=== PATIENT | female | born 1990 | race Caucasian/White ===

== ENCOUNTER 2016-08-17 01:26 | Emergency (ER) | payer BC, OTHER ==
[2016-08-17 01:33] VITALS: BP 114/69; PULSE 70; TEMP 98.4; BMI 21.6
[2016-08-17] MEDS ORDERED: LOPERAMIDE HCL 2 MG CAPSULE PO ONE (02:03)
[2016-08-17] MEDS ORDERED: AMOXICILLIN 250 MG CAPSULE PO ONE (02:03)
[2016-08-17] MEDS ORDERED: AMOXICILLIN 250 MG CAPSULE ONE (02:04)
[2016-08-17] MEDS ORDERED: LOPERAMIDE HCL 2 MG CAPSULE ONE (02:04)
--- NOTE | 2016-08-17 02:05 | PDOC ---
[id number] DIARRHEA SINCE WEDNESDAY Time Seen by Provider: 08/17/16 01:30 - History of Present Illness Initial Comments: 08/17/16 02:12 This 26 y.o woman presents with 4 day history of diarrhea: she first experienced loose stools 6 days ago which abated for a few days then recurred. She was away on vacation (in [place]) when diarrhea returned and admits to eating a full diet/drinking alcohol despite the loose stools.Patient returned today and had multiple loose stools while on plane. She describes some mucus and blood streaking in the stool. no fever/chills/nausea/vomiting. No known sick contacts. Recent history notable for course of Clindamycin for wisdom tooth infection( ending approx 2 weeks ago) No previous history of gastrintestinal issues patient states that she has developed pain in right upper wisdom tooth in the last 1-2 days(dental abscess 2 weeks ago was in right lower wisdom tooth) PMH anemia Meds iron supplements Past History - Past Medical History Allergies/Adverse Reactions: Allergies Allergy/AdvReac Type Severity Reaction Status Date / Time No Known Allergies Allergy Verified 08/17/16 01:27 Home Medications: Ambulatory Orders NK [No Known Home Medication] 08/17/16 Other medical history: DENIES - Psycho/Social/Smoking Cessation Hx Anxiety: No Suicidal Ideation: No Smoking History: Current every day smoker Have you smoked in the past 12 months: Yes Number of Cigarettes Smoked Daily: 3 Information on smoking cessation initiated: No Hx Alcohol Use: Yes (SOCIALLY) Drug/Substance Use Hx: No Substance Use Type: None Review of Systems - Review of Systems Able to Perform ROS?: Yes Comments:: 12 point review of systems is negative except for what is noted in the history of present illness *Physical Exam - Vital Signs Last Vital Signs Temp Pulse Resp BP Pulse Ox 98.4 F 70 16 114/69 100 08/17/16 01:29 08/17/16 01:29 08/17/16 01:29 08/17/16 01:29 08/17/16 01:29 - Physical Exam Comments: GENERAL: The patient is awake, alert, and fully oriented, in no acute distress. Vital signs as noted. HEAD: Normal with no signs of trauma. EYES: Pupils equal, round and reactive to light, extraocular movements intact, sclera anicteric, conjunctiva clear with no pallor. ENT: moist mucous membranes. Ears normal, nares patent, oropharynx clear without exudates. NECK: Normal range of motion, supple without lymphadenopathy, JVD, or masses. LUNGS: Breath sounds equal, clear to auscultation bilaterally. No wheeze/ crackles. HEART: Regular rate and rhythm, normal S1 and S2 without murmur or rub. ABDOMEN: Soft,nondistended. BS wnl. Generalized very mild tenderness without guarding or rebound. No palpable masses. No hepatosplenomegaly. EXTREMITIES: Normal range of motion, no edema. No clubbing or cyanosis. No cords, erythema, or tenderness. NEUROLOGICAL: Cranial nerves II through XII grossly intact. Normal speech, normal gait. PSYCH: Normal mood, normal affect. SKIN: Warm, Dry, normal turgor, no rashes or lesions noted. Progress Note - Progress Note Progress Note: This 26y.o. woman presents with a few day history of diarrhea and intermittent abdominal cramping(associated with bowel movements). Exam reveals no evidence of dehydration or abdominal tenderness/distention. right upper wisdom tooth area is moderately tender but without significant edema/inflammation Significance of possible C difficile infection explained to the patient.She cannot provide a sample now for testing. She prefers to followup with her own general doctor within the next few days, taking imodium or pepto bismol as needed. She will see her dentist tomorrow; in light of her diarrhea and lack of severity of infectious process in right upper wisdom tooth, neither Augmentin or Clindamycin will be given now. *DC/Admit/Observation/Transfer Diagnosis at time of Disposition: Dental abscess Diarrhea Qualifiers: Diarrhea type: presumed infectious Qualified Code(s): A09 - Infectious gastroenteritis and colitis, unspecified - Discharge Dispostion Disposition: HOME Condition at time of disposition: Stable - Referrals Referrals: Britney Luque MD [Primary Care Provider] - 2 Days - Patient Instructions Printed Discharge Instructions: Diarrhea Additional Instructions: drink plenty of water followup with your dentist tomorrow imodium or peptp bismol as needed bland diet avoid alcohol/high fat or spicy foods/citrus see your general doctor within 2 days return to ER if your symptoms worsen
== END 2016-08-17 02:12 | disposition home or self-care (01) ==
LOC: FER 01:26
DX: K04.7 Periapical abscess without sinus (principal); A09 Infectious gastroenteritis and colitis, unspecified; F17.210 Nicotine dependence, cigarettes, uncomplicated
CPT/HCPCS: 99281-25

== ENCOUNTER 2016-08-18 18:15 | Emergency (ER) | payer OTHER ==
--- NOTE | 2016-08-18 18:20 | PDOC ---
History of Present Illness <Ta Gan - Last Filed: 08/18/16 18:20> - History of Present Illness Initial Comments: 08/18/16 20:39 The patient is a 26 year old female with no PMHx who presents to the ED with diffuse abdominal pain, diarrhea, and hematochezia for about a week. She reports the diarrhea is constant. She reports that the hematochezia is intermittent and she is unaware if it is still persisting because she is currently menstruating. The patient reports that she presented 2 days ago with similar symptoms, and was discharged with Imodium. She reports the symptoms have persisted, so she went to urgent care today who told her to come back to the ED. She reports that she had a tooth infection and has been on antibiotics for about 3 weeks. She began on clindamycin, and is currently on amoxicillin. She states that she has been incorporating yogurt in her diet daily. She reports tobacco use and alcohol use. She denies fever, chills, nausea, vomiting. She denies chest pain, SOB, headache, dizziness. She denies urinary complaints. <Lissett Colon - Last Filed: 08/18/16 20:42> <Leonie Swanson - Last Filed: 08/19/16 04:05> - General Stated Complaint: BLOOD IN STOOL Past History - Psycho/Social/Smoking Cessation Hx Anxiety: No Suicidal Ideation: No Smoking History: Current every day smoker Have you smoked in the past 12 months: Yes Number of Cigarettes Smoked Daily: 3 'Breaking Loose' booklet given: 08/17/16 Hx Alcohol Use: Yes (SOCIALLY) Drug/Substance Use Hx: No Substance Use Type: None <Ta Gan - Last Filed: 08/18/16 18:20> <Lissett Colon - Last Filed: 08/18/16 20:42> <Leonie Swanson - Last Filed: 08/19/16 04:05> - Past Medical History Allergies/Adverse Reactions: Allergies Allergy/AdvReac Type Severity Reaction Status Date / Time No Known Allergies Allergy Verified 08/18/16 18:25 Home Medications: Ambulatory Orders NK [No Known Home Medication] 08/17/16 Review of Systems - Review of Systems Able to Perform ROS?: Yes Comments:: 08/18/16 20:40 GENERAL/CONSTITUTIONAL: No fever or chills. No weakness. HEAD, EYES, EARS, NOSE AND THROAT: No change in vision. No ear pain or discharge. No sore throat. CARDIOVASCULAR: No chest pain or shortness of breath. RESPIRATORY: No cough, wheezing, or hemoptysis. GASTROINTESTINAL: (+) abdominal pain, (+) diarrhea, (+) hematochezia. No nausea , vomiting, or constipation. GENITOURINARY: No dysuria, frequency, or change in urination. MUSCULOSKELETAL: No joint or muscle swelling or pain. No neck or back pain. SKIN: No rash NEUROLOGIC: No headache, vertigo, loss of consciousness, or change in strength/ sensation. ENDOCRINE: No increased thirst. No abnormal weight change. HEMATOLOGIC/LYMPHATIC: No anemia, easy bleeding, or history of blood clots. ALLERGIC/IMMUNOLOGIC: No hives or skin allergy. <Lissett Colon A - Last Filed: 08/18/16 20:42> *Physical Exam - Vital Signs Last Vital Signs Temp Pulse Resp BP Pulse Ox 98.6 F 71 18 124/62 100 08/18/16 18:18 08/18/16 18:18 08/18/16 18:18 08/18/16 18:18 08/18/16 18:18 - Physical Exam Comments: 08/18/16 20:41 GENERAL: Awake, alert, and fully oriented, in no acute distress HEAD: No signs of trauma EYES: PERRLA, EOMI, sclera anicteric, conjunctiva clear ENT: Auricles normal inspection, hearing grossly normal, nares patent, oropharynx clear without exudates. Moist mucosa NECK: Normal ROM, supple, no lymphadenopathy, JVD, or masses LUNGS: Breath sounds equal, clear to auscultation bilaterally. No wheezes, and no crackles HEART: Regular rate and rhythm, normal S1 and S2, no murmurs, rubs or gallops ABDOMEN: Soft, diffuse tenderness, hyperactive bowel sounds. No guarding, no rebound. No masses EXTREMITIES: Normal range of motion, no edema. No clubbing or cyanosis. No cords, erythema, or tenderness NEUROLOGICAL: Cranial nerves II through XII grossly intact. Normal speech, normal gait SKIN: Warm, Dry, normal turgor, no rashes or lesions noted. <Lissett Colon - Last Filed: 08/18/16 20:42> - Vital Signs Last Vital Signs Temp Pulse Resp BP Pulse Ox 98.6 F 71 18 124/62 100 08/18/16 18:18 08/18/16 18:18 08/18/16 18:18 08/18/16 18:18 08/18/16 18:18 <Leonie Swanson - Last Filed: 08/19/16 04:05> ED Treatment Course - LABORATORY CBC & Chemistry Diagram: 08/18/16 18:33 08/18/16 18:33 - ADDITIONAL ORDERS Additional order review: Laboratory Results 08/18/16 08/18/16 08/18/16 19:30 19:06 18:33 INR Sodium 134 L Potassium 3.5 Chloride 102 Carbon Dioxide 23 Anion Gap 9 BUN 6 L Creatinine 0.6 Creat Clearance w eGFR > 60 Random Glucose 98 Calcium 9.0 Total Bilirubin 0.5 AST 12 ALT 12 Alkaline Phosphatase 52 Total Protein 6.7 Albumin 4.2 Lipase 20 L Serum , Qual Negative Urine Color Yellow Urine Appearance Clear Urine pH 5.5 Ur Specific [place] 1.015 Urine Protein Negative Urine Glucose (UA) Negative Urine Ketones 2+ H Urine Blood 3+ H Urine Nitrite Negative Urine Bilirubin Negative Urine Urobilinogen 0.2 e.u/dl Ur Leukocyte Esterase Negative Stool Occult Blood 08/18/16 08/18/16 18:33 18:33 INR 1.07 Sodium Potassium Chloride Carbon Dioxide Anion Gap BUN Creatinine Creat Clearance w eGFR Random Glucose Calcium Total Bilirubin AST ALT Alkaline Phosphatase Total Protein Albumin Lipase Serum , Qual Urine Color Urine Appearance Urine pH Ur Specific [place] Urine Protein Urine Glucose (UA) Urine Ketones Urine Blood Urine Nitrite Urine Bilirubin Urine Urobilinogen Ur Leukocyte Esterase Stool Occult Blood Positive 08/18/16 18:33 RBC 4.45 MCV 87.7 MCHC 34.8 RDW 12.5 MPV 7.8 Neutrophils % 77.2 Lymphocytes % 9.4 Monocytes % 12.5 H Eosinophils % 0.6 Basophils % 0.3 - Medications Given in the ED: ED Medications Discontinued Medications Generic Name Dose Route Start Last Admin Trade Name Freq PRN Reason Stop Dose Admin Sodium Chloride 1,000 mls @ 1,000 mls/hr 08/18/16 18:56 08/18/16 19:05 Normal Saline - IV 08/18/16 19:55 1,000 mls/hr ASDIR STA Administration <Nichelle Colonobhan Ferdinand - Last Filed: 08/18/16 20:42> - LABORATORY CBC & Chemistry Diagram: 08/18/16 18:33 08/18/16 18:33 - ADDITIONAL ORDERS Additional order review: Laboratory Results 08/18/16 08/18/16 08/18/16 19:30 19:06 18:33 INR Sodium 134 L Potassium 3.5 Chloride 102 Carbon Dioxide 23 Anion Gap 9 BUN 6 L Creatinine 0.6 Creat Clearance w eGFR > 60 Random Glucose 98 Calcium 9.0 Total Bilirubin 0.5 AST 12 ALT 12 Alkaline Phosphatase 52 Total Protein 6.7 Albumin 4.2 Lipase 20 L Serum , Qual Negative Urine Color Yellow Urine Appearance Clear Urine pH 5.5 Ur Specific [place] 1.015 Urine Protein Negative Urine Glucose (UA) Negative Urine Ketones 2+ H Urine Blood 3+ H Urine Nitrite Negative Urine Bilirubin Negative Urine Urobilinogen 0.2 e.u/dl Ur Leukocyte Esterase Negative Urine RBC 20-30 Urine WBC 0-2 Urine Bacteria Few Stool Occult Blood 08/18/16 08/18/16 18:33 18:33 INR 1.07 Sodium Potassium Chloride Carbon Dioxide Anion Gap BUN Creatinine Creat Clearance w eGFR Random Glucose Calcium Total Bilirubin AST ALT Alkaline Phosphatase Total Protein Albumin Lipase Serum , Qual Urine Color Urine Appearance Urine pH Ur Specific [place] Urine Protein Urine Glucose (UA) Urine Ketones Urine Blood Urine Nitrite Urine Bilirubin Urine Urobilinogen Ur Leukocyte Esterase Urine RBC Urine WBC Urine Bacteria Stool Occult Blood Positive 08/18/16 18:33 RBC 4.45 MCV 87.7 MCHC 34.8 RDW 12.5 MPV 7.8 Neutrophils % 77.2 Lymphocytes % 9.4 Monocytes % 12.5 H Eosinophils % 0.6 Basophils % 0.3 - Medications Given in the ED: ED Medications Discontinued Medications Generic Name Dose Route Start Last Admin Trade Name Freq PRN Reason Stop Dose Admin Sodium Chloride 1,000 mls @ 1,000 mls/hr 08/18/16 18:56 08/18/16 19:05 Normal Saline - IV 08/18/16 19:55 1,000 mls/hr ASDIR STA Administration <Leonie Swanson - Last Filed: 08/19/16 04:05> *DC/Admit/Observation/Transfer - Attestations Physician Attestion: 08/18/16 18:20 I, Dr. Ta Gan, attest that this document has been prepared under my direction and personally reviewed by me in its entirety. I further attest, that it accurately reflects all work, treatment, procedures and medical decision -making performed by me. <Ta Gan - Last Filed: 08/18/16 18:20> - Attestations Scribe Attestion: 08/18/16 20:41 Documentation prepared by Lissett Colon, acting as medical management specialist for Ta Gan MD/DO. <Lissett Colon - Last Filed: 08/18/16 20:42> <Leonie Swanson - Last Filed: 08/19/16 04:05> Diagnosis at time of Disposition: Dental abscess Diarrhea Qualifiers: Diarrhea type: presumed infectious Qualified Code(s): A09 - Infectious gastroenteritis and colitis, unspecified - Discharge Dispostion Disposition: HOME Condition at time of disposition: Stable - Patient Instructions Printed Discharge Instructions: DI for Diarrhea and Traveler's Diarrhea -- Adult, Probiotics May Decrease Intensity and Duration of Diarrhea Due to Infection Additional Instructions: fluids/light diet as tolerated Continue amoxicillin as prescribed Continue probiotics as discussed Imodium/Pepto-Bismol as needed after each loose stool Follow-up with your general doctor tomorrow as scheduled Return to ER if your symptoms worsen
[2016-08-18 18:24] VITALS: BP 124/62; PULSE 71; TEMP 98.6; BMI 21.6
[2016-08-18] MEDS ORDERED: SODIUM CHLORIDE 1,000 ML IV STA (18:56)
[2016-08-18 18:57] LABS: INR 1.07 (0.82-1.09)
[2016-08-18 18:58] LABS: BASOPHIL 0.3 % (0-2.0); EOSINOPHIL 0.6 % (0-4.5); MCH 30.5 pg (25.7-33.7); MCHC 34.8 g/dl (32.0-36.0); MEAN CELL VOLUME 87.7 fl (80-96); MEAN PLT VOLUME 7.8 fl (7.5-11.1); NEUTROPHILS 77.2 % (42.8-82.8); PLATELET COUNT 287 K/MM3 (134-434); RDW 12.5 % (11.6-15.6); WHITE BLOOD COUNT 9.9 K/mm3 (4.0-10.8)
[2016-08-18 19:03] LABS: ALBUMIN 4.2 g/dl (3.5-5.0); ALK PHOS 52 U/L (32-92); ANION GAP 9 (8-16); BILIRUBIN,TOTAL 0.5 mg/dl (0.2-1.0); CO2 23 mmol/L (22-28); CREATININE 0.6 mg/dl (0.6-1.3); GLUCOSE,RANDOM 98 mg/dl (74-106); SGOT/AST 12 U/L (10-42); SGPT/ALT 12 U/L (10-40); TOT PROT 6.7 g/dl (6.4-8.3)
[2016-08-18 19:41] LABS: PH,URINE 5.5 (4.5-8); URINE APPEARANCE Clear; URINE BILIRUBIN Negative (NEGATIVE); URINE BLOOD 3+ (NEGATIVE); URINE COLOR YELLOW; URINE GLUCOSE (UA) Negative (NEGATIVE); URINE KETONE 2+ (NEGATIVE); URINE LEUK ESTERASE Negative (NEGATIVE); URINE NITRITE Negative (NEGATIVE); URINE PROTEIN Negative (NEGATIVE); URINE UROBILINOGEN 0.2 E.U/dl (0.2-1.0)
--- NOTE | 2016-08-18 19:51 | PDOC ---
[id number] 100 08/18/16 18:18 08/18/16 18:18 08/18/16 18:18 08/18/16 18:18 08/18/16 18:18 ED Treatment Course - LABORATORY CBC & Chemistry Diagram: 08/18/16 18:33 08/18/16 18:33 - ADDITIONAL ORDERS Additional order review: Laboratory Results 08/18/16 08/18/16 08/18/16 19:30 19:06 18:33 INR Sodium 134 L Potassium 3.5 Chloride 102 Carbon Dioxide 23 Anion Gap 9 BUN 6 L Creatinine 0.6 Creat Clearance w eGFR > 60 Random Glucose 98 Calcium 9.0 Total Bilirubin 0.5 AST 12 ALT 12 Alkaline Phosphatase 52 Total Protein 6.7 Albumin 4.2 Lipase 20 L Serum , Qual Negative Urine Color Yellow Urine Appearance Clear Urine pH 5.5 Ur Specific [place] 1.015 Urine Protein Negative Urine Glucose (UA) Negative Urine Ketones 2+ H Urine Blood 3+ H Urine Nitrite Negative Urine Bilirubin Negative Urine Urobilinogen 0.2 e.u/dl Ur Leukocyte Esterase Negative Stool Occult Blood 08/18/16 08/18/16 18:33 18:33 INR 1.07 Sodium Potassium Chloride Carbon Dioxide Anion Gap BUN Creatinine Creat Clearance w eGFR Random Glucose Calcium Total Bilirubin AST ALT Alkaline Phosphatase Total Protein Albumin Lipase Serum , Qual Urine Color Urine Appearance Urine pH Ur Specific [place] Urine Protein Urine Glucose (UA) Urine Ketones Urine Blood Urine Nitrite Urine Bilirubin Urine Urobilinogen Ur Leukocyte Esterase Stool Occult Blood Positive 08/18/16 18:33 RBC 4.45 MCV 87.7 MCHC 34.8 RDW 12.5 MPV 7.8 Neutrophils % 77.2 Lymphocytes % 9.4 Monocytes % 12.5 H Eosinophils % 0.6 Basophils % 0.3 Progress Note - Progress Note Progress Note: Care of this patient received from Dr. Gan. Patient known to me from her previous ER visit. Patient now seen after tooth extraction. Her diarrhea continues and abdominal discomfort continues. Patient has received a liter of IV saline. CBC/chemistry profile sent and are essentially normal. WBC count not elevated; only elevation of cell type in differential is monocytes Only electrolyte abnormality is minimal decrease in sodium (134 milligrams per deciliter) Stool is guaiac positive. Stool samples sent for C. difficile and culture/sensitivity Patient will be discharged with instructions to continue amoxicillin as well as her probiotics. She should use Imodium/Pepto-Bismol as needed after loose stools. The patient is already scheduled to follow up with her general doctor tomorrow morning. She should return to the emergency room if she has severe lightheadedness/ worsening abdominal pain/fever. *DC/Admit/Observation/Transfer Diagnosis at time of Disposition: Dental abscess Diarrhea Qualifiers: Diarrhea type: presumed infectious Qualified Code(s): A09 - Infectious gastroenteritis and colitis, unspecified - Discharge Dispostion Disposition: HOME Condition at time of disposition: Stable - Patient Instructions Printed Discharge Instructions: Probiotics May Decrease Intensity and Duration of Diarrhea Due to Infection, DI for Diarrhea and Traveler's Diarrhea -- Adult Additional Instructions: fluids/light diet as tolerated Continue amoxicillin as prescribed Continue probiotics as discussed Imodium/Pepto-Bismol as needed after each loose stool Follow-up with your general doctor tomorrow as scheduled Return to ER if your symptoms worsen
[2016-08-18 21:47] LABS: URINE BACTERIA FEW /hpf (NEGATIVE); URINE RBC 20-30 /hpf (0-3); URINE WBC 0-2 (3-5)
--- NOTE | 2016-08-19 11:28 | PDOC ---
Patient Follow-up (Call Back) - Post ED Follow - Up Condition at time of discharge: Stable Disposition at time of original discharge: HOME - Disposition Additional Instructions/Notes: Patient contacted by phone at 11:25 AM phone number [phone]. Informed of positive C. difficile in the stool. She has an appointment to see her primary physician today, and will inform him of this result. She feels she contracted it because of a course of clindamycin that was taken for a dental procedure. She continues to have diarrhea, but is eating and drinking and her condition is stable.
== END 2016-08-18 20:48 | disposition home or self-care (01) ==
LOC: FER 18:15
DX: K04.7 Periapical abscess without sinus (principal); A09 Infectious gastroenteritis and colitis, unspecified
CPT/HCPCS: 36415; 80053; 81003; 81015; 82272; 83690; 84703; 85025; 85610; 87045; 87046; 87086; 87205; 87324; 87449; 99283-25